=== PATIENT | female | born 1995 | race Caucasian/White ===

== ENCOUNTER 2017-02-16 16:32 | Emergency (ER) | END 2017-02-16 20:45 | disposition home or self-care (01) ==

== ENCOUNTER 2017-07-06 10:45 | Inpatient (IN) | END 2017-07-11 15:25 | disposition home or self-care (01) | DRG 766 ==

== ENCOUNTER 2017-12-09 09:13 | Emergency (ER) | END 2017-12-09 10:43 | disposition home or self-care (01) ==